=== PATIENT | male | born 1990 ===

== ENCOUNTER 2017-10-20 15:05 | Emergency (ER) | payer SELFPAY ==
--- NOTE | 2017-10-20 15:22 | Emergency Department Record ---
History of Present Illness - General Chief Complaint: Bloodborne Pathogen Exposure Stated Complaint: NEEDLE STICK Source: Patient Mode of Arrival: Ambulatory Limitations: No limitations - History of Present Illness Initial comments: 26 yo male presents for evaluation after a needle stick. He works in nuclear medicine. He was poked in the left ring finger with a butterfly needle. His is up to date on Hepatitis B vaccination. He take Truvada prophylaxically as a homosexual male through his PCP. He is not HIV positive. Tetanus is near 10 years. -: Minutes(s) Radiation: Non-Radiating Consistency: Constant Improves with: None Worsens with: None Associated Symptoms: Denies other symptoms - Related Data Home Medications Medication Instructions Recorded Confirmed Last Taken Bupropion HCl [Wellbutrin Xl] 300 mg PO DAILY 10/20/17 10/20/17 10/20/17 Buspirone HCl [Buspar] 7.5 mg PO DAILY 10/20/17 10/20/17 10/20/17 Cetirizine HCl [Zyrtec] 10 mg PO DAILY 10/20/17 10/20/17 10/19/17 Emtricitabine/Tenofovir (Tdf) 1 tab PO ASDIR 10/20/17 10/20/17 10/20/17 [Truvada 200 mg-300 mg Tablet] Glucosamine HCl 1,500 mg PO DAILY 10/20/17 10/20/17 10/20/17 Lamotrigine [Lamictal] 100 mg PO DAILY 10/20/17 10/20/17 10/19/17 Metoprolol Succinate [Toprol Xl] 25 mg PO DAILY 10/20/17 10/20/17 10/20/17 Montelukast Sodium [Singulair] 10 mg PO QHS 10/20/17 10/20/17 10/19/17 Multivitamin [Daily Multiple 1 tab PO DAILY 10/20/17 10/20/17 10/20/17 Vitamin] Allergies Allergy/AdvReac Type Severity Reaction Status Date / Time No Known Drug Allergies Allergy Verified 10/20/17 15:14 Review of Systems Constitutional: Denies: Chills, Fever, Malaise, Weakness Eyes: Denies: Eye discharge ENT: Denies: Congestion, Throat pain Respiratory: Reports: Cough (Improving recent cough) Cardiovascular: Denies: Chest pain, Syncope Endocrine: Denies: Fatigue Gastrointestinal: Denies: Abdominal pain, Diarrhea, Nausea, Vomiting Genitourinary: Denies: Dysuria, Frequency, Hematuria Musculoskeletal: Denies: Arthralgia, Back pain, Joint swelling, Myalgia, Neck pain Skin: Denies: Bruising, Change in color, Rash Neurological: Denies: Headache, Numbness, Weakness Psychiatric: Denies: Anxiety Hematological/Lymphatic: Denies: Blood Clots, Easy bleeding, Easy bruising, Swollen glands Physical Exam - General General Appearance: Alert, Oriented x3, Cooperative, No acute distress Limitations: No limitations - Head Head exam: Normal inspection - Eye Eye exam: Normal appearance - ENT ENT exam: Normal exam Ear exam: Normal external inspection Nasal Exam: Normal inspection Mouth exam: Normal external inspection - Neck Neck exam: Normal inspection - Respiratory Respiratory exam: Normal lung sounds bilaterally. negative: Respiratory distress, Rhonchi, Stridor, Wheezes - Cardiovascular Cardiovascular Exam: Regular rate, Normal rhythm, Normal heart sounds - GI/Abdominal GI/Abdominal exam: Soft. negative: Tenderness - Rectal Rectal exam: Deferred - exam: Deferred - Extremities Extremities exam: Normal inspection - Neurological Neurological exam: Alert, Oriented X3 - Psychiatric Psychiatric exam: Normal affect, Normal mood - Skin Skin exam: Dry, Intact, Normal color, Warm Course - Reevaluation(s) Reevaluation #1: The patient is up to date on hep B The patient is lower risk with a very small gauge injury Additionally he is on truvada for pre-exposure prophylaxis 10/20/17 15:19 10/20/17 16:07 Patient labs have been drawn DC to follow up with employee health 10/20/17 19:14 the rapid HIV on the source was negative no indication for PEP Disposition Disposition: Discharge Clinical Impression: Needle stick injury of finger Qualifiers: Encounter type: initial encounter Qualified Code(s): S61.239A - Puncture wound without foreign body of unspecified finger without damage to nail, initial encounter Disposition: Home, Self-Care Condition: (1) Good Instructions: Needle Stick Injuries (ED) Additional Instructions: Call your employer to follow up with your employer's occupational health clinic for follow up testing in 6 weeks and follow up testing Forms: Patient Portal Access Time of Disposition: 16:08 Quality - Quality Measures Quality Measures: N/A - Blood Pressure Screening Does Patient Have Any of the Following: No Blood Pressure Classification: Hypertensive Reading Systolic Measurement: 130 Diastolic Measurement: 94 Screening for High Blood Pressure: < Pre-Hypertensive BP, F/U Documented > [ [id number]] Pre-Hypertensive Follow-up Interventions: Referral to alternative/primary care provider.
[2017-10-21 14:22] LABS: HEP A AB IGM Nonreactive (Nonreactive); HEPATITIS B CORE ANTIBODY,IGM Nonreactive (Nonreactive); HEPATITIS B SURFACE ANTIBODY >1000.00 mIU/mL; HEPATITIS B SURFACE ANTIGEN Nonreactive (Nonreactive); HEPATITIS C VIRUS ANTIBODY Nonreactive (Nonreactive)
== END 2017-10-20 16:23 | disposition home or self-care (01) ==
LOC: ER 15:05
DX: S61.235A Puncture wound without foreign body of left ring finger without damage to nail, initial encounter (principal); W45.8XXA Other foreign body or object entering through skin, initial encounter; W22.8XXA Striking against or struck by other objects, initial encounter; W46.0XXA Contact with hypodermic needle, initial encounter; Y93.F9 Activity, other caregiving; Y99.0 Civilian activity done for income or pay; Z87.891 Personal history of nicotine dependence
CPT/HCPCS: 87390; 99283